=== PATIENT | male | born 1990 | race Caucasian/White ===

== ENCOUNTER 2022-12-01 13:16 | Outpatient (CLI) | payer BC, SELFPAY ==
--- NOTE | 2022-12-01 13:45 | CRLHL7_ITS ---
For Patients: As a result of the Century Cures Act, medical imaging exams and procedure reports are released immediately into your electronic medical record. You may view this report before your referring provider. If you have questions, please contact your health care provider. INDICATION: Dizziness. TECHNIQUE: Multiplanar multisequence MR imaging acquired through the brain and internal auditory canals prior to and following intravenous contrast. COMPARISON: None. FINDINGS: The ventricles and sulci are within normal limits for patient age. No mass effect or midline shift. No parenchymal signal abnormalities. No intracranial hemorrhage or pathologic extra-axial fluid collection. No diffusion restriction to suggest acute infarction. No pathologic intracranial enhancement. No mass or pathologic enhancement within the internal auditory canals or cerebellopontine angles. No concerning signal abnormalities in the inner ear structures. No vascular loop within the internal auditory canals. The major arterial flow voids of the skullbase are preserved. The globes are symmetric. Minimal ethmoid sinus mucosal thickening. Trace right mastoid fluid. IMPRESSION: Unremarkable MRI of the brain and internal auditory canals. Dictated by Ousmane Kaur MD @ 12/02/2022 11:34:06 AM (Electronically Signed)
== END 2022-12-01 13:17 | disposition home or self-care (01) ==
LOC: MRI 13:18
PROVIDERS: PCP Nurse Practitioner Family; Visit Provider Otolaryngology
DX: R42 Dizziness and giddiness (principal)
CPT/HCPCS: 70553; A9575